=== PATIENT | male | born 1980 | race African-American/Black ===

== ENCOUNTER 2017-04-23 08:15 | Outpatient (RCR) | payer MEDICARE, OTHER | END 2017-05-06 | disposition home or self-care (01) | LOC: PTY 08:15 | DX: M79.609 Pain in unspecified limb (principal); R26.9 Unspecified abnormalities of gait and mobility | CPT/HCPCS: 97110; 97161; G8978; G8979 ==

== ENCOUNTER 2017-05-29 09:00 | Outpatient (RCR) | payer MEDICARE, OTHER | END 2017-06-06 | disposition home or self-care (01) | LOC: PTY 09:00 | DX: M79.605 Pain in left leg (principal); M79.604 Pain in right leg; R26.9 Unspecified abnormalities of gait and mobility; Z79.899 Other long term (current) drug therapy ==

== ENCOUNTER 2017-06-11 10:00 | Outpatient (RCR) | payer MEDICARE, OTHER | END 2017-07-04 | disposition home or self-care (01) | LOC: PTY 10:00 | DX: M79.605 Pain in left leg (principal); M79.604 Pain in right leg; R26.9 Unspecified abnormalities of gait and mobility; Z79.899 Other long term (current) drug therapy | CPT/HCPCS: 97110; G8978; G8979; G8980 ==